=== PATIENT | female | born 1995 | race Caucasian/White ===

== ENCOUNTER 2017-04-09 19:33 | Emergency (ER) | payer OTHER ==
[2017-04-09 22:05] LABS: HEMOGLOBIN 12.6 gm/dl (12.3-15.3); RED BLOOD COUNT 4.51 M/UL (4.00-5.10); WHITE BLOOD COUNT 12.1 K/UL (4.5-11.0)
[2017-04-09 23:08] LABS: BUN/CREATININE RATIO 11 (0-10)
== END 2017-04-10 02:30 | disposition home or self-care (01) ==
LOC: ER1 19:33
PROVIDERS: Physician Assistant
DX: O20.0 Threatened abortion (principal); Z3A.01 Less than 8 weeks gestation of pregnancy
CPT/HCPCS: 36415; 76817; 80053; 81001; 84702; 85025; 85379; 86900; 86901; 87086; 96360; 99284